=== PATIENT | male | born 2000 | race Hispanic/Latino ===

== ENCOUNTER 2020-04-21 13:25 | Emergency (ER) | payer SELFPAY ==
[2020-04-21] MEDS ORDERED: Fentanyl 100 MCG/2 ML VIAL ONE (13:31)
[2020-04-21] MEDS ORDERED: Adacel (T-DAP) 0.5 ML SYRINGE ONE (13:31)
[2020-04-21] MEDS ORDERED: Ondansetron PF 4 MG/2 ML Vial ONE (13:31)
[2020-04-21 13:44] LABS: #Basophils 0.1 thou/uL (0.0-0.2); #Eosinphils 0.1 thou/uL (0.0-0.7); #Lymphocytes 2.3 thou/uL (1.20-3.40); #Neutrophils 11.2 thou/uL (1.40-6.50); %Basophils 0.4 % (0.0-1.0); %Eosinophils 0.7 % (0.0-10.0); %Lymphocytes 15.5 % (21.0-51.0); %Monocytes 6.9 % (0.0-10.0); %Neutrophils 76.6 % (42.0-75.0); Hemoglobin 15.1 g/dL (14.0-18.0); Mean Corpuscular HGB CONC 34.3 g/dL (32.0-36.0); Mean Corpuscular Hemoglobin 28.7 pg (27.0-31.0); Mean Corpuscular Volume 83.5 fL (78.0-98.0); Mean Platelet Volume 6.1 fL (7.4-10.4); Platelet Count 382 thou/uL (130-400); RBC Distribution Width 10.9 % (11.5-14.5); Red Blood Cell (RBC) Count 5.27 mill/uL (4.70-6.10); White Blood Cell (WBC) Count 14.6 thou/uL (4.8-10.8)
--- NOTE | 2020-04-21 13:46 | RAD ---
XR Elbow Lt 2 View HISTORY: Left elbow pain COMPARISON: None. FINDINGS: There is posterior dislocation at the elbow joint. No definite fracture is seen.
[2020-04-21 13:49] LABS: PTT 25.8 sec (22.9-36.1); Prothrombin Time 13.1 sec (12.0-14.7)
[2020-04-21] MEDS ORDERED: Ketamine 50 MG/ML (10ML VIAL) ONE (14:05)
[2020-04-21 14:08] LABS: ALT (SGPT) 33 U/L (8-55); AST (SGOT) 24 U/L (5-34); Albumin 4.6 g/dL (3.5-5.0); Alkaline Phosphatase 70 U/L (40-110); Anion Gap 15 mmol/L (10-20); BUN (Urea Nitrogen) 10 mg/dL (8.9-20.6); Bilirubin, Total 0.4 mg/dL (0.2-1.2); Calc. Creatinine Clearance 0 mL/min (70-130); Calcium 9.5 mg/dL (7.8-10.44); Carbon Dioxide 21 mmol/L (22-29); Chloride 103 mmol/L (98-107); Estimated GFR-MDRD Greater than 90; Globulin 3.4 g/dL (2.4-3.5); Glucose 107 mg/dL (70-105); Potassium 3.7 mmol/L (3.5-5.1); Sodium 135 mmol/L (136-145)
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
--- NOTE | 2020-04-21 14:40 | RAD ---
Exam: XR Elbow Lt 2 View HISTORY: Left elbow dislocation. COMPARISON: 04/21/2020 at 1259 hours. FINDINGS: True AP projection is not obtained as the provided AP image is obtained in flexion which limits adequ ate evaluation. However, provided images demonstrate interval reduction of the previously noted dislocation at the elbow joint. No definitive dislocation is appreciated on this exam, and no obvious fracture is identified. There is suggestion of minimal joint effusion. IMPRESSION: Reduction of previously noted dislocation left elbow. No obvious dislocation seen on this examination , and no fracture is appreciated.
[2020-04-21] MEDS ORDERED: Iopamidol-370 76% 500 ML 1 ML ONE (16:32)
== END 2020-04-21 15:21 | disposition home or self-care (01) ==
LOC: ERS 13:25
DX: S53.105A Unspecified dislocation of left ulnohumeral joint, initial encounter (principal); S16.1XXA Strain of muscle, fascia and tendon at neck level, initial encounter; S20.219A Contusion of unspecified front wall of thorax, initial encounter; V89.2XXA Person injured in unspecified motor-vehicle accident, traffic, initial encounter
CPT/HCPCS: 24600; 36415; 70450; 71260; 72125; 74177; 80053; 85025; 85610; 85730; 86850; 86900; 86901; 90471; 90715; 96361; 96374; 96375; 99152; G0390; J2405; J3010; Q9967